=== PATIENT | female | born 1945 | race Asian ===

== ENCOUNTER 2016-05-07 03:59 | Inpatient (IN) | payer OTHER ==
[~2016-05-07] VITALS: Ht 157.5 cm; Wt 74.1 kg
[2016-05-07 04:56] LABS: BASOPHIL % 0.9 % (0-2); PLATELET COUNT 309 x10^3mcL (130-400); RED CELL DISTRIBUTION WIDTH 13.4 % (11.5-14.5)
[2016-05-07 05:04] LABS: CALCIUM 8.3 mg/dL (8.5-10.1); CHLORIDE SERUM 107 mmol/L (98-107); CREATININE SERUM 0.7 mg/dL (0.6-1.0); GFR1 > 60 mL/min; GLUCOSE SERUM 193 mg/dL (74-106); POTASSIUM SERUM 3.2 mmol/L (3.5-5.1); SODIUM SERUM 139 mmol/L (136-145)
[2016-05-07 05:09] LABS: ALKALINE PHOSPHATASE 64 U/L (46-116); ALT/SGPT 31 U/L (14-59); AST/SGOT 24 U/L (15-37); BILIRUBIN TOTAL 0.23 mg/dL (0.20-1.00); TOTAL PROTEIN, SERUM 6.8 g/dL (6.4-8.2)
[2016-05-07 05:10] LABS: ALBUMIN 2.7 g/dL (3.4-5.0)
[2016-05-07 05:30] LABS: CK-MB < 0.5 ng/mL (0-3.6); CREATINE KINASE 36 U/L (26-192)
[2016-05-07] MEDS ORDERED: SYNTHROID0.088 MG PO (05:33)
[2016-05-07] MEDS ORDERED: HYDROCORT PO (05:37)
[2016-05-07] MEDS ORDERED: DESMOPRESSIN A0.1 MG PO (05:38)
[2016-05-07] MEDS ORDERED: PROGESTERONE (05:39)
[2016-05-07 06:36] VITALS: BP 140/86
[2016-05-07 07:24] LABS: CHOLESTEROL/HDL RATIO 3.6
[2016-05-07 07:30] LABS: T3 TOTAL 1.26 ng/mL
[2016-05-07 07:34] LABS: FREE T4 1.58 ng/dL (0.76-1.46); FREE THYROXINE INDEX 4.1 ug/dL (1.4-4.5); T4(THYROXINE) 11.6 ug/dL (4.7-13.3)
[2016-05-07 09:55] VITALS: BP 134/78; BP 95/50
[2016-05-07 12:19] VITALS: BP 140/83
[2016-05-07 17:00] VITALS: BP 113/68
[2016-05-07] MEDS ORDERED: HYDROCORTISONE PO (17:14)
[2016-05-07 21:53] VITALS: BP 116/62
[2016-05-08 06:41] VITALS: BP 120/76
[2016-05-08 09:12] VITALS: BP 133/72
[2016-05-08 11:21] LABS: AMPHETAMINE QUAL UR NONE DETECTED (NEG <=1000)
[2016-05-08 11:22] LABS: UA SPECIFIC GRAVITY <=1.005 (1.005-1.035); microscopic required? YES; urine erythrocyte TRACE (NEGATIVE)
[2016-05-08 12:50] VITALS: BP 140/81
[2016-05-08 17:58] VITALS: BP 131/85
[2016-05-08 21:07] VITALS: Ht 157.5 cm; Wt 74.1 kg
[2016-05-08 21:27] VITALS: BP 123/80
[2016-05-09 06:08] VITALS: BP 133/86
[2016-05-09 06:35] LABS: BASOPHIL % 0.2 % (0-2); PLATELET COUNT 344 x10^3mcL (130-400); RED CELL DISTRIBUTION WIDTH 13.4 % (11.5-14.5)
[2016-05-09 06:45] LABS: CALCIUM 8.8 mg/dL (8.5-10.1); CARBON DIOXIDE 23.9 mmol/L (21-32); CHLORIDE SERUM 106 mmol/L (98-107); CREATININE SERUM 0.7 mg/dL (0.6-1.0); GFR1 > 60 mL/min; GLUCOSE SERUM 116 mg/dL (74-106); MAGNESIUM 1.7 mg/dL (1.8-2.4); PHOSPHOROUS 3.8 mg/dL (2.5-4.9); POTASSIUM SERUM 3.4 mmol/L (3.5-5.1); SODIUM SERUM 139 mmol/L (136-145)
[2016-05-09 10:00] VITALS: BP 107/62
[2016-05-09] MEDS ORDERED: ECO81 PO (10:59)
[2016-05-09 13:27] VITALS: BP 107/62
== END 2016-05-09 15:00 | disposition home or self-care (01) | DRG 551 ==
LOC: ED 03:59 → DU 05:52
PROVIDERS: Emergency Medicine; Family Medicine; ADMIT Family Medicine
PROC: 7W0 Osteopathic, Anatomical Regions, Treatment (ICD-10-PCS; principal; 2016-05-08)
PROC: 7W0 Osteopathic, Anatomical Regions, Treatment (ICD-10-PCS; 2016-05-08)
PROC: 7W01X1Z Osteopathic Treatment of Cervical Region using Fascial Release (ICD-10-PCS; 2016-05-08)
DX: M48.02 Spinal stenosis, cervical region (principal); E43 Unspecified severe protein-calorie malnutrition; N39.0 Urinary tract infection, site not specified; E87.6 Hypokalemia; E83.42 Hypomagnesemia; E86.0 Dehydration; D72.829 Elevated white blood cell count, unspecified; R73.03 Prediabetes; M99.01 Segmental and somatic dysfunction of cervical region; M99.02 Segmental and somatic dysfunction of thoracic region; E03.9 Hypothyroidism, unspecified; J32.8 Other chronic sinusitis; Z86.39 Personal history of other endocrine, nutritional and metabolic disease
CPT/HCPCS: 80307; 82962; 83880; 84439; 97110-GP; 97116-GP; 97530-GP; J0696; J7030; Q0092

== ENCOUNTER 2018-12-10 12:41 | Emergency (ER) | payer OTHER ==
[~2018-12-10 12:41] MED LIST: DESMOPRESSIN A0.1 MG PO; ECO81 PO; HYDROCORT PO; HYDROCORTISONE PO; PROGESTERONE; SYNTHROID0.088 MG PO
[2018-12-10 14:10] LABS: UA SPECIFIC GRAVITY 1.015 (1.005-1.035); microscopic required? YES; urine erythrocyte TRACE (NEGATIVE)
[2018-12-10 14:40] LABS: CALCIUM 8.3 mg/dL (8.5-10.1); CARBON DIOXIDE 25.9 mmol/L (21-32); CHLORIDE SERUM 104 mmol/L (98-107); CREATININE SERUM 0.8 mg/dL (0.6-1.0); GLUCOSE SERUM 100 mg/dL (74-106); POTASSIUM SERUM 3.3 mmol/L (3.5-5.1); SODIUM SERUM 140 mmol/L (136-145)
[2018-12-10 14:42] LABS: PLATELET COUNT 311 x10^3mcL (130-400); RED CELL DISTRIBUTION WIDTH 13.8 % (11.5-14.5)
[2018-12-10 14:44] LABS: BASOPHIL % 2.3 % (0-2)
[2018-12-10 14:45] LABS: ALBUMIN 3.1 g/dL (3.4-5.0); ALKALINE PHOSPHATASE 38 U/L (46-116); ALT/SGPT 24 U/L (14-59); AST/SGOT 17 U/L (15-37); BILIRUBIN TOTAL 0.6 mg/dL (0.20-1.00)
[2018-12-10 18:53] VITALS: BP 124/70
== END 2018-12-10 18:53 | disposition short-term general hospital (02) ==
LOC: ED 12:41
PROVIDERS: Emergency Medicine
DX: R42 Dizziness and giddiness (principal); R11.2 Nausea with vomiting, unspecified; R53.1 Weakness; R20.0 Anesthesia of skin; Z98.890 Other specified postprocedural states
CPT/HCPCS: 36415; 82962; Q0092